=== PATIENT | female | born 1990 | race Caucasian/White ===

== ENCOUNTER 2017-12-31 19:57 | Emergency (ER) | payer OTHER ==
[~2017-12-31] VITALS: Ht 157.5 cm; Wt 61.2 kg
[2017-12-31 20:07] VITALS: BP_SYST 119
--- NOTE | 2017-12-31 20:11 | NUR ---
Patient to ER bed 01 to gown for evaluation. Side rails up. Report given to ALEJANDRO Roche
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
--- NOTE | 2017-12-31 20:22 | NUR ---
ER Dr. Dubose at bedside examining patient.
[2017-12-31 20:51] VITALS: BP_SYST 119
--- NOTE | 2017-12-31 20:51 | NUR ---
Patient given written and verbal discharge instructions and verbalizes understanding. ER MD discussed with patient the results and treatment provided. Patient in stable condition. ID arm band removed. No Rx given. Patient educated on pain management and to follow up with PMD in 2-3 days. Pain Scale 0/10 Opportunity for questions provided and answered.
== END 2017-12-31 20:51 | disposition home or self-care (01) ==
LOC: SED 19:57
DX: S80.211A Abrasion, right knee, initial encounter (principal); S00.01XA Abrasion of scalp, initial encounter; Y04.0XXA Assault by unarmed brawl or fight, initial encounter; Y93.89 Activity, other specified; Y92.89 Other specified places as the place of occurrence of the external cause; Y99.8 Other external cause status
CPT/HCPCS: 99283